=== PATIENT | male | born 1995 | race Caucasian/White ===

== ENCOUNTER → 2020-06-19 10:07 | Outpatient (CLI) | payer OTHER, SELFPAY ==
[2020-06-19 12:53] LABS: COVID19 -Nasal RAPID POSITIVE (Negative)
== END ==
PROVIDERS: Visit Provider Physician Assistant
DX: U07.1 COVID-19 (principal)
CPT/HCPCS: 87070; 87635

== ENCOUNTER 2022-08-03 10:32 | Emergency (ER) | payer OTHER, SELFPAY ==
[2022-08-03 10:54] VITALS: BP 116/84; PULSE 81; RESP 18; TEMP 36.9; O2SAT 96; BMI 27.9
[2022-08-03 11:37] LABS: Add Manual Diff / Slide Review NO; Basophils Absolute Auto 0 /uL (0-100); Basophils Percent Auto 0.2 % (0-2); Eosinophils Absolute Auto 0 /uL (0-450); Eosinophils Percent Auto 0.2 % (2-4); Hemoglobin 14.7 g/dL (13.5-17.5); Lymphocytes Absolute Auto 700 /uL (1100-4500); Lymphocytes Percent Auto 12.1 % (25-40); Mean Corpuscular Hemoglobin 31.2 PG (26-34); Mean Corpuscular Volume 89.1 fL (80-100); Monocytes Absolute Auto 400 /uL (0-900); Monocytes Percent Auto 5.9 % (3-14); Neutrophils Absolute Auto 4900 /uL (1500-7000); Neutrophils Percent Auto 81.6 % (50-75); Platelet Count 280 X10^3/uL (150-400); Red Blood Cell Count 4.71 X10^6/uL (4.5-5.9); Red Cell Distribution Width 12.2 % (11.6-14.8)
[2022-08-03 11:48] LABS: Appearance Urine UA CLEAR; Bilirubin Urine UA NEGATIVE (NEGATIVE); Color Urine UA YELLOW; Glucose Urine UA NEGATIVE (Negative); Ketones Urine UA TRACE (NEGATIVE); Leukocyte Esterase Urine UA NEGATIVE (NEGATIVE); Nitrite Urine UA NEGATIVE (Negative); Occult Blood Urine UA NEGATIVE (Negative); Protein Urine UA NEGATIVE (Negative); Urobilinogen Urine UA 0.2 E.U./dL (0.2); pH Urine UA 7.5 (4.5-8.0)
[2022-08-03 11:48] LABS: Acetaminophen < 10 ug/mL (10-30); Alanine Aminotransferase 34 IU/L (<50); Albumin 4.6 g/dL (3.5-5.0); Albumin Globulin Ratio 1.4 (1.0-2.8); Alkaline Phosphatase 98 U/L (38-126); Aspartate Aminotransferase 24 IU/L (17-59); BUN Creatinine Ratio 14.1 (6-22); Bilirubin Total 2.5 mg/dL (0.2-1.3); Blood Urea Nitrogen 10 mg/dL (9-20); Calcium 9.3 mg/dL (8.4-10.2); Carbon Dioxide 28 mmol/L (22-32); Chloride 100 mmol/L (98-107); Estimated Glomerular Filt Rate > 60 mL/min (>60); Ethanol (ETOH) < 10 mg/dL; Globulin 3.4 g/dL (1.7-4.1); Glucose 104 mg/dL (70-100); HEMOLYSIS < 15 (0-50); Salicylate < 1.0 mg/dL (<20); Sodium 137 mmol/L (137-145)
[2022-08-03 11:58] LABS: UR Morphine/Opiate cutoff 300 Negative (Negative); Ur Creatinine Normal (Normal); Ur Specific Gravity Normal (Normal); Urine Amphetamines Negative (Negative); Urine Barbiturates Negative (Negative); Urine Benzodiazepines Negative (Negative); Urine Cocaine Negative (Negative); Urine MDMA Negative (Negative); Urine Methadone Negative (Negative); Urine Methamphetamines Negative (Negative); Urine Oxycodone Negative (Negative); Urine Phencyclidine Negative (Negative); Urine Tetrahydrocannabinol Negative (Negative); Urine Tricyclic Antidepressant Negative (Negative); Urine pH Normal (Normal)
[2022-08-03 12:00] LABS: Bacteria Urine None Seen; Culture Indicated Urine Cult Not Indicated; RBC Urine None Seen (0-5/HPF); Squamous Epithelial Cell Urine None Seen (0-5/HPF); WBC Urine None Seen (0-5/HPF)
[2022-08-03 12:05] LABS: Free T4, Direct Thyroxine 1.07 ng/dL (0.78-2.19)
[2022-08-03 12:19] LABS: Thyroid Stimulating Hormone 1.53 uIU/mL (0.47-4.68)
--- NOTE | 2022-08-03 14:42 | CM.SWNOTE ---
Addendum entered by Caryl Rick 08/03/22 15:31: VENDING MACHINE REFILLER provided patient for DVR through [facility] when he is ready to seek occupational and educational services. VENDING MACHINE REFILLER also provides patient with list of crisis contacts. VENDING MACHINE REFILLER attempts to call treatment development disability specialist, information provided by therapist but VENDING MACHINE REFILLER is unable to leave VM. VENDING MACHINE REFILLER encourages patient to contact them and encourages patient to give programs a try as they may be different from his previous experience. ED provider endorses plan to prescribe Hydroxyzine for patient and patient is medically clear for d/c. VENDING MACHINE REFILLER reviews this with patient and patient endorses understanding and states he feels comfortable driving home and discharging to home. VENDING MACHINE REFILLER recommends that patient call his sister or mother when he is feeling anxious. VENDING MACHINE REFILLER discusses going outside as needed as well. Patient to f/u with outpatient providers, patient to d/c to home upon medical clearance. Caryl Rick, [facility] Original Note: VENDING MACHINE REFILLER Assessment Note VENDING MACHINE REFILLER - Official Greeter Assessment VENDING MACHINE REFILLER/Official Greeter Assessment Time Spent with Patient Start date 08/03/22 Visit Start Time 12:20 End date 08/03/22 Visit End Time 12:35 Total time Care Management spent on 20 minutes patient visit-in minutes Mental Health Screening Include Onset, Duration, Intensity Presenting Problem Patient presents to ED due to concern for ongoing panic attacks over the last four days. Patient endorses statements I wish I could go to sleep and not wake up, I wish I could have a procedure to fix me. Patient denies SI plan. Patient endorses concern for feeling joyless, difficulty enjoying things or applying himself. Precipitating Event(s) Patient endorses hx of a similar panic attack in October where he went to a treatment facility for a month . Patient endorses he moved from [place] to live with Parents in December, patient endorses difficulty managing going to college or working due to his Depression and anxiety. Patient Strengths Patient has good family supports but they are out of town right now, patient has a Psychiatrist and therapist and patient is seeking more help and guidance. Current Behavioral Health Provider(s) Patient sees Psychiatrist Dr. Ghada Shannon, Provider, Ph. # Peggy Noe with [facility] (Ph. # ) Patient sees therapist Dr. Laina Garcia, Ph.D, [facility] (Ph[facility] # ) Patient endorses he missed a recent psychiatry appt and he had a therapy appt the other day and was supposed to have appt today but patient chose to go to ED. Patient gives verbal consent for VENDING MACHINE REFILLER to contact patient's providers. VENDING MACHINE REFILLER leaves VM with both providers. Patient's therapist returns call and endorses that patient has been emotionally unstable lately most likely because his biggest supports his sister and mother are out of town. Therapist endorses hx of treatment program that did not set up patient with a transitional program upon discharge to home. Therapist reports patient would benefit from IOP or PHP as well as other treatment programs that specialize in ASD. Therapist endorses that it is often difficulty for patient to take the next step and make phone calls but sometimes he is quite able to follow through. Psych. Hx Mental Health and Chemical Patient endorses dx of ADD, Dependency Anxiety, Depression, Autism Spectrum Disorder and patient states he could have dx of Social Pragmatic Disorder. Patient denies substance or ETOH use. Patient endorses rx of citalopram 20mg prescribed by psychiatrist but denies any other current rx. Family Hx of Behavioral Abuse None reported Psychiatric Hospitalizations (date(s)/ Patient endorses month long location) stay last year at [facility] in [place] to address his mental health concerns. Patient endorses he went there seeking tools and did not find it to be helpful. Psychosocial information & Support Patient is 27 y/o male who is Systems currently residing with his parents in [place]. Patient endorses he moved there in December after living alone in the [place] area. School/Work Patient endorses he was going to [employer] last year but he is currently not going to school or working. Patient endorses that discussing goals makes him more anxious. Legal Concerns Legal Matters - Outstanding Issues None reported Mental Status Orientation (Person/Place/Time) A/Ox4 Stated Mood feeling shitty Affect (Congruent with Mood?) depressed, Flat (congruent with ASD), full range, congruent with mood. Thought Content - Specify/Describe None reported Obsessions, Delusions, Hallucinations Thought Processes (Ykusnjg-Omkqxhbx-Urhn coherent Ffugedql-Kutewsih-Ypzlwyuebr- Domqeespngektu-Ulpqlqg-Euuivbmzfmkf- Thought Blocking) Speech (Rlwslh-Tcuz-Uydmuly-Rapid-Soft- normal Loud-Pressured) Motor (Pgroiq-Uqkgrruli-Xmre-Other) normal Insight (Tfpv-Ipeo-Idez/Limited) good/fair Judgement (Byzn-Cbse-Rxki/Limited) good/fair Impulse Control (Adequate-Impaired) adequate Memory (Ydffsekmg-Hwsemj-Ycylkh, intact, not formally assessed Impaired-Intact) Concentration (Intact-Impaired) intact Attention (Intact-Impaired) intact Behavior (Appropriate-Inappropriate) appropriate Additional Comment Patient presents as calm, communicative and cooperative. Risk Assessment Suicidal Ideation (Plan) Yes Homicidal Ideation (Plan) No Comment Patient endorses SI and states I want to go to sleep and not wake up. Patient denies hx of SI in high school, patient denies plans. Patient endorses he has SI because of frustration, panic and fear of failure. Intervention Intervention VENDING MACHINE REFILLER enters room to meet with patient. Patient endorses concern for anxiety and panic attacks. Patient endorses thoughts of wanting to go to sleep and not wake up, patient denies SI plans. Patient endorses concern for feeling stuck, concerned about his ability to apply himself. Patient endorses he is seeking guidance and help Patient endorses he is seeking structure about what to do and how to move forward. Patient endorses that he has a psychiatrist and therapist and that he went to a treatment center for a month but did not find it helpful. VENDING MACHINE REFILLER discusses BH inpatient hospitalization, patient endorses that he is not interested and does not believe it will be helpful. VENDING MACHINE REFILLER awaiting to hear back from psychiatrist to attempt to coordinate care and next appt for patient. VENDING MACHINE REFILLER to discuss other outpatient options for patient to access MH and ASD resources. It is the opinion of this VENDING MACHINE REFILLER that patient is safe to d/c to home upon medical clearance. VENDING MACHINE REFILLER reviews the above with ED provider JOSE Wyman. ED provider has yet to evaluate patient at this time. Plan RA Plan VENDING MACHINE REFILLER to seek further outpatient resources for patient, patient to d/c to home upon medical clearance, patient to f/u with therapist and psychiatrist. JENNIFER Grant
--- NOTE | 2022-08-03 15:29 | ED_ITS ---
HPI - Psych <Kayla Live PA-C - Last Filed: 08/03/22 16:16> General Chief Complaint: Psychiatric Symptoms Stated Complaint: Panic attack, worsening Time Seen by Provider: 08/03/22 11:05 Source: patient Mode of arrival: Ambulatory History of Present Illness HPI Narrative: This is a 27-year-old male history of autism, anxiety, depression who presents with concern for panic attacks. Patient states that he has a history of anxiety and depression and had a problem with panic attacks last summer and again about 4 days ago he said he had a pretty bad panic attack and they have been happening about once a day since then. He states he has been taking his regular medications and does not feel that there have been any specific life stressors recently that have brought it on. He does try to do breathing exercises when they happened but he has difficulty controlling his symptoms. When he is having them he says he has symptoms of tightness in his stomach, nausea and feeling cold. He states he has a psychiatrist that he sees who prescribes his citalopram and he ?needs to make an appointment to see her?. He states he usually sees her about every 1 or 2 months but has not been in in the last month or 2. He does state he has resources and people he feels he can call, he lives with his parents and says that they are supportive. He states that he feels like his panic attacks last summer with a result of having problems in college he has been in and out of college as an adult and feels frustrated by his symptoms of anxiety and depression which she feels have gradually worsened in his 20s. He denies any recent illness including pain, fevers, chills or any other symptoms. Related Data Home Medications Medication Instructions Recorded Confirmed citalopram 10 mg tablet (Celexa) 10 mg PO QDAY ##0 03/21/17 citalopram 20 mg tablet (Celexa) 20 mg PO QDAY ##0 03/21/17 Previous Rx's Medication Instructions Recorded amoxicillin 875 mg-potassium 875 mg PO BID #20 tabs 03/21/17 clavulanate 125 mg tablet (Augmentin) hydroxyzine HCl 25 mg tablet 25 mg PO TID PRN anxiety/panic 08/03/22 attacks #30 tabs Allergies Allergy/AdvReac Type Severity Reaction Status Date / Time No Known Allergies Allergy Uncoded 06/26/17 12:30 Review of Systems <Kayla Live PA-C - Last Filed: 08/03/22 16:16> Review of Systems Narrative: See HPI Patient History <Kayla Live PA-C - Last Filed: 08/03/22 16:16> Social History Smoking Status: Never smoker Smoking Status: Never smoker alcohol intake frequency: holidays/special occasions only Substance Use Type: does not use Exam <Kayla Live PA-C - Last Filed: 08/03/22 16:16> Narrative Exam Narrative: GENERAL: 27 year old patient appears stated age. Well-developed patient, in mild distress. HEAD: Atraumatic. Normocephalic. EYES: Pupils equal round and reactive. Extraocular motions intact. No scleral icterus. No injection or drainage. ENT: Nose without bleeding, purulent drainage. Throat without erythema, tonsillar hypertrophy or exudate. Airway patent. NECK: Trachea midline. Non tender CARDIOVASCULAR: Regular rate and rhythm without murmurs, gallops, or rubs. RESPIRATORY: Clear to auscultation. Breath sounds equal bilaterally. No wheezes, rales, or rhonchi. GASTROINTESTINAL: Abdomen soft, non-tender, nondistended. EXTREMITIES: No edema or joint tenderness. BACK: Nontender without deformity or crepitance. No flank tenderness. NEURO: AOx3. SKIN: No rash or erythema of visible areas PSYCH: Slightly flat affect. No thoughts of harming self or others. Normal speech/thought processes. Initial Vital Signs Initial Vital Signs: Vital Signs Temperature 98.4 F 08/03/22 10:54 Pulse Rate 81 08/03/22 10:54 Respiratory Rate 18 08/03/22 10:54 Blood Pressure 116/84 08/03/22 10:54 Pulse Oximetry 96 08/03/22 10:54 Oxygen Delivery Method Room Air 08/03/22 10:54 <Tory Ayala DO - Last Filed: 08/03/22 19:48> Initial Vital Signs Initial Vital Signs: Vital Signs Temperature 98.4 F 08/03/22 10:54 Pulse Rate 81 08/03/22 10:54 Respiratory Rate 18 08/03/22 10:54 Blood Pressure 116/84 08/03/22 10:54 Pulse Oximetry 96 08/03/22 10:54 Oxygen Delivery Method Room Air 08/03/22 10:54 Course <Kayla Live PA-C - Last Filed: 08/03/22 16:16> Orders Ordered: ED Orders 08/03/22 11:10 Consult to [facility] Continuous Improvement Analyst Stat 08/03/22 11:20 Acetaminophen Stat Complete Blood Count AUTO DIFF Stat Comprehensive Metabolic Panel Stat Ethanol (ETOH) Stat Free T4, Direct Thyroxine Stat Salicylate Stat Thyroid Stimulating Hormone Stat 08/03/22 11:35 Urinalysis and Microscopic Stat Urine Drug Screen, Rapid Stat Consultations Consultation #1: HOME AID was consulted and did see this patient, she feels that he is safe for outpatient treatment and does not meet criteria for inpatient. She has provided him with resources. Vital Signs Vital signs: Vital Signs - 8 hr 08/03/22 16:13 Pulse Rate 86 Respiratory Rate 18 Blood Pressure 140/70 Pulse Oximetry 96 Oxygen Delivery Method Room Air <Tory Ayala DO - Last Filed: 08/03/22 19:48> Orders Ordered: ED Orders 08/03/22 11:10 Consult to [facility] Continuous Improvement Analyst Stat 08/03/22 11:20 Acetaminophen Stat Complete Blood Count AUTO DIFF Stat Comprehensive Metabolic Panel Stat Ethanol (ETOH) Stat Free T4, Direct Thyroxine Stat Salicylate Stat Thyroid Stimulating Hormone Stat 08/03/22 11:35 Urinalysis and Microscopic Stat Urine Drug Screen, Rapid Stat Vital Signs Vital signs: Vital Signs - 8 hr 08/03/22 16:13 Pulse Rate 86 Respiratory Rate 18 Blood Pressure 140/70 Pulse Oximetry 96 Oxygen Delivery Method Room Air MDM - Psych <Kayla Live PA-C - Last Filed: 08/03/22 16:16> Differential Diagnosis Differential diagnosis: Likely depression, acute anxiety and other (panic attacks) Medical Records Attestation: I reviewed the patient's medical records. Lab Data Attestation: I reviewed the patient's lab results. 08/03/22 11:20 08/03/22 11:20 Labs: Lab Results 08/03/22 08/03/22 08/03/22 Range/Units 11:20 11:20 11:20 WBC 6.0 (4.5-11.0) X10^3/uL RBC 4.71 (4.5-5.9) X10^6/uL Hgb 14.7 (13.5-17.5) g/dL Hct 42.0 (41-53) % MCV 89.1 (80-100) fL MCH 31.2 (26-34) PG MCHC 35.0 (30-36) % RDW 12.2 (11.6-14.8) % Plt Count 280 (150-400) X10^3/uL Neut % (Auto) 81.6 H (50-75) % Lymph % (Auto) 12.1 L (25-40) % [place] % (Auto) 5.9 (3-14) % Eos % (Auto) 0.2 L (2-4) % Baso % (Auto) 0.2 (0-2) % Neut # (Auto) 4900 (4508-4375) /uL Lymph # (Auto) 700 L (2167-9497) /uL [place] # (Auto) 400 (0-900) /uL Eos # (Auto) 0 (0-450) /uL Baso # (Auto) 0 (0-100) /uL Sodium 137 (137-145) mmol/L Potassium 4.0 (3.4-5.1) mmol/L Chloride 100 (98-107) mmol/L Carbon Dioxide 28 (22-32) mmol/L BUN 10 (9-20) mg/dL Creatinine 0.71 (0.66-1.25) mg/dL Estimated GFR > 60 (>60) mL/min BUN/Creatinine Ratio 14.1 (6-22) Glucose 104 H (70-100) mg/dL Calcium 9.3 (8.4-10.2) mg/dL Total Bilirubin 2.5 H (0.2-1.3) mg/dL AST 24 (17-59) IU/L ALT 34 (<50) IU/L Alkaline Phosphatase 98 (38-126) U/L Total Protein 8.0 (6.3-8.2) g/dL Albumin 4.6 (3.5-5.0) g/dL Globulin 3.4 (1.7-4.1) g/dL Albumin/Globulin Ratio 1.4 (1.0-2.8) TSH 1.53 (0.47-4.68) uIU/mL Free T4 1.07 (0.78-2.19) ng/dL Urine Color Urine Appearance Urine pH (4.5-8.0) Ur Specific [place] (1.000-1.035) Urine Protein (Negative) Urine Glucose (UA) (Negative) g/dL Urine Ketones (NEGATIVE) Urine Occult Blood (Negative) Urine Nitrate (Negative) Urine Bilirubin (NEGATIVE) Urine Urobilinogen (0.2) E.U./dL Ur Leukocyte Esterase (NEGATIVE) Urine RBC (0-5/HPF) Urine WBC (0-5/HPF) Ur Squamous Epith Cells (0-5/HPF) Urine Bacteria (None) Ur Culture Indicated? Salicylates < 1.0 (<20) mg/dL U Opiates 300ng/mL cut (Negative) Ur Oxycodone Screen (Negative) Urine Methadone Screen (Negative) Acetaminophen < 10 (10-30) ug/mL Ur Barbiturates Screen (Negative) U Tricyclic Antidepress (Negative) Ur Phencyclidine Scrn (Negative) Ur Amphetamines Screen (Negative) U Methamphetamines Scrn (Negative) Ur MDMA Scrn (Ecstasy) (Negative) U Benzodiazepines Scrn (Negative) Urine Cocaine Screen (Negative) U Marijuana (THC) Screen (Negative) Ethyl Alcohol < 10 ( - 10) mg/dL 08/03/22 08/03/22 Range/Units 11:35 11:35 WBC (4.5-11.0) X10^3/uL RBC (4.5-5.9) X10^6/uL Hgb (13.5-17.5) g/dL Hct (41-53) % MCV (80-100) fL MCH (26-34) PG MCHC (30-36) % RDW (11.6-14.8) % Plt Count (150-400) X10^3/uL Neut % (Auto) (50-75) % Lymph % (Auto) (25-40) % [place] % (Auto) (3-14) % Eos % (Auto) (2-4) % Baso % (Auto) (0-2) % Neut # (Auto) (3142-5197) /uL Lymph # (Auto) (3460-2886) /uL [place] # (Auto) (0-900) /uL Eos # (Auto) (0-450) /uL Baso # (Auto) (0-100) /uL Sodium (137-145) mmol/L Potassium (3.4-5.1) mmol/L Chloride (98-107) mmol/L Carbon Dioxide (22-32) mmol/L BUN (9-20) mg/dL Creatinine (0.66-1.25) mg/dL Estimated GFR (>60) mL/min BUN/Creatinine Ratio (6-22) Glucose (70-100) mg/dL Calcium (8.4-10.2) mg/dL Total Bilirubin (0.2-1.3) mg/dL AST (17-59) IU/L ALT (<50) IU/L Alkaline Phosphatase (38-126) U/L Total Protein (6.3-8.2) g/dL Albumin (3.5-5.0) g/dL Globulin (1.7-4.1) g/dL Albumin/Globulin Ratio (1.0-2.8) TSH (0.47-4.68) uIU/mL Free T4 (0.78-2.19) ng/dL Urine Color Yellow Urine Appearance Clear Urine pH 7.5 (4.5-8.0) Ur Specific [place] 1.010 (1.000-1.035) Urine Protein Negative (Negative) Urine Glucose (UA) Negative (Negative) g/dL Urine Ketones Trace H (NEGATIVE) Urine Occult Blood Negative (Negative) Urine Nitrate Negative (Negative) Urine Bilirubin Negative (NEGATIVE) Urine Urobilinogen 0.2 (0.2) E.U./dL Ur Leukocyte Esterase Negative (NEGATIVE) Urine RBC None seen (0-5/HPF) Urine WBC None seen (0-5/HPF) Ur Squamous Epith Cells None seen (0-5/HPF) Urine Bacteria None seen (None) Ur Culture Indicated? Cult not indicated Salicylates (<20) mg/dL U Opiates 300ng/mL cut Negative (Negative) Ur Oxycodone Screen Negative (Negative) Urine Methadone Screen Negative (Negative) Acetaminophen (10-30) ug/mL Ur Barbiturates Screen Negative (Negative) U Tricyclic Antidepress Negative (Negative) Ur Phencyclidine Scrn Negative (Negative) Ur Amphetamines Screen Negative (Negative) U Methamphetamines Scrn Negative (Negative) Ur MDMA Scrn (Ecstasy) Negative (Negative) U Benzodiazepines Scrn Negative (Negative) Urine Cocaine Screen Negative (Negative) U Marijuana (THC) Screen Negative (Negative) Ethyl Alcohol ( - 10) mg/dL Treatment and disposition Shared decision making:: Shared decision-making was used in determine the usha glass's plan of care in the emergency department and plan for outpatient care MDM Narrative Medical decision making narrative: This is a well-appearing 27-year-old male with a history of autism, anxiety and depression who presents with concern for panic attacks for the last 3-4 days. Patient was interested in help with his symptoms and met with social work today, he has no recent illness or medical complaint, he had an unremarkable exam. Discussed options with him he has a new prescription for hydroxyzine, and resources provided by social work today. He has a psychiatrist already and will be following with them as well. Patient's labs were unremarkable today. Return precautions provided, follow-up plan discussed, all questions answered. <Tory Ayala, DO - Last Filed: 08/03/22 19:48> Lab Data Labs: Lab Results 08/03/22 08/03/22 08/03/22 Range/Units 11:20 11:20 11:20 WBC 6.0 (4.5-11.0) X10^3/uL RBC 4.71 (4.5-5.9) X10^6/uL Hgb 14.7 (13.5-17.5) g/dL Hct 42.0 (41-53) % MCV 89.1 (80-100) fL MCH 31.2 (26-34) PG MCHC 35.0 (30-36) % RDW 12.2 (11.6-14.8) % Plt Count 280 (150-400) X10^3/uL Neut % (Auto) 81.6 H (50-75) % Lymph % (Auto) 12.1 L (25-40) % [place] % (Auto) 5.9 (3-14) % Eos % (Auto) 0.2 L (2-4) % Baso % (Auto) 0.2 (0-2) % Neut # (Auto) 4900 (6933-8144) /uL Lymph # (Auto) 700 L (2898-0348) /uL [place] # (Auto) 400 (0-900) /uL Eos # (Auto) 0 (0-450) /uL Baso # (Auto) 0 (0-100) /uL Sodium 137 (137-145) mmol/L Potassium 4.0 (3.4-5.1) mmol/L Chloride 100 (98-107) mmol/L Carbon Dioxide 28 (22-32) mmol/L BUN 10 (9-20) mg/dL Creatinine 0.71 (0.66-1.25) mg/dL Estimated GFR > 60 (>60) mL/min BUN/Creatinine Ratio 14.1 (6-22) Glucose 104 H (70-100) mg/dL Calcium 9.3 (8.4-10.2) mg/dL Total Bilirubin 2.5 H (0.2-1.3) mg/dL AST 24 (17-59) IU/L ALT 34 (<50) IU/L Alkaline Phosphatase 98 (38-126) U/L Total Protein 8.0 (6.3-8.2) g/dL Albumin 4.6 (3.5-5.0) g/dL Globulin 3.4 (1.7-4.1) g/dL Albumin/Globulin Ratio 1.4 (1.0-2.8) TSH 1.53 (0.47-4.68) uIU/mL Free T4 1.07 (0.78-2.19) ng/dL Urine Color Urine Appearance Urine pH (4.5-8.0) Ur Specific [place] (1.000-1.035) Urine Protein (Negative) Urine Glucose (UA) (Negative) g/dL Urine Ketones (NEGATIVE) Urine Occult Blood (Negative) Urine Nitrate (Negative) Urine Bilirubin (NEGATIVE) Urine Urobilinogen (0.2) E.U./dL Ur Leukocyte Esterase (NEGATIVE) Urine RBC (0-5/HPF) Urine WBC (0-5/HPF) Ur Squamous Epith Cells (0-5/HPF) Urine Bacteria (None) Ur Culture Indicated? Salicylates < 1.0 (<20) mg/dL U Opiates 300ng/mL cut (Negative) Ur Oxycodone Screen (Negative) Urine Methadone Screen (Negative) Acetaminophen < 10 (10-30) ug/mL Ur Barbiturates Screen (Negative) U Tricyclic Antidepress (Negative) Ur Phencyclidine Scrn (Negative) Ur Amphetamines Screen (Negative) U Methamphetamines Scrn (Negative) Ur MDMA Scrn (Ecstasy) (Negative) U Benzodiazepines Scrn (Negative) Urine Cocaine Screen (Negative) U Marijuana (THC) Screen (Negative) Ethyl Alcohol < 10 ( - 10) mg/dL 08/03/22 08/03/22 Range/Units 11:35 11:35 WBC (4.5-11.0) X10^3/uL RBC (4.5-5.9) X10^6/uL Hgb (13.5-17.5) g/dL Hct (41-53) % MCV (80-100) fL MCH (26-34) PG MCHC (30-36) % RDW (11.6-14.8) % Plt Count (150-400) X10^3/uL Neut % (Auto) (50-75) % Lymph % (Auto) (25-40) % [place] % (Auto) (3-14) % Eos % (Auto) (2-4) % Baso % (Auto) (0-2) % Neut # (Auto) (9246-3269) /uL Lymph # (Auto) (5387-7115) /uL [place] # (Auto) (0-900) /uL Eos # (Auto) (0-450) /uL Baso # (Auto) (0-100) /uL Sodium (137-145) mmol/L Potassium (3.4-5.1) mmol/L Chloride (98-107) mmol/L Carbon Dioxide (22-32) mmol/L BUN (9-20) mg/dL Creatinine (0.66-1.25) mg/dL Estimated GFR (>60) mL/min BUN/Creatinine Ratio (6-22) Glucose (70-100) mg/dL Calcium (8.4-10.2) mg/dL Total Bilirubin (0.2-1.3) mg/dL AST (17-59) IU/L ALT (<50) IU/L Alkaline Phosphatase (38-126) U/L Total Protein (6.3-8.2) g/dL Albumin (3.5-5.0) g/dL Globulin (1.7-4.1) g/dL Albumin/Globulin Ratio (1.0-2.8) TSH (0.47-4.68) uIU/mL Free T4 (0.78-2.19) ng/dL Urine Color Yellow Urine Appearance Clear Urine pH 7.5 (4.5-8.0) Ur Specific [place] 1.010 (1.000-1.035) Urine Protein Negative (Negative) Urine Glucose (UA) Negative (Negative) g/dL Urine Ketones Trace H (NEGATIVE) Urine Occult Blood Negative (Negative) Urine Nitrate Negative (Negative) Urine Bilirubin Negative (NEGATIVE) Urine Urobilinogen 0.2 (0.2) E.U./dL Ur Leukocyte Esterase Negative (NEGATIVE) Urine RBC None seen (0-5/HPF) Urine WBC None seen (0-5/HPF) Ur Squamous Epith Cells None seen (0-5/HPF) Urine Bacteria None seen (None) Ur Culture Indicated? Cult not indicated Salicylates (<20) mg/dL U Opiates 300ng/mL cut Negative (Negative) Ur Oxycodone Screen Negative (Negative) Urine Methadone Screen Negative (Negative) Acetaminophen (10-30) ug/mL Ur Barbiturates Screen Negative (Negative) U Tricyclic Antidepress Negative (Negative) Ur Phencyclidine Scrn Negative (Negative) Ur Amphetamines Screen Negative (Negative) U Methamphetamines Scrn Negative (Negative) Ur MDMA Scrn (Ecstasy) Negative (Negative) U Benzodiazepines Scrn Negative (Negative) Urine Cocaine Screen Negative (Negative) U Marijuana (THC) Screen Negative (Negative) Ethyl Alcohol ( - 10) mg/dL Discharge Plan Departure Patient Disposition: Home Clinical Impression: Panic attacks Instructions: DI for Panic Disorder Activity Restrictions/Additional Instructions: *You have been diagnosed with panic attacks *What to do: *Please continue to take your regular medications as directed. [ 1] New medication prescriptions sent to your pharmacy: [ Hydroxyzine] [ ] New medication written as a paper prescription [ ] No new medications given *Please follow up with your primary care provider in 2-3 days, call for an appointment. Let them know you were seen in the Emergency Department and that we ask that you be seen in follow up. We will electronically transmit a record of today's note if your PCP is in our system. I recommend you follow-up with your psychiatrist, encourage you to get in with counselor, I did prescribe a new medication for you that can be used when you feel like her anxiety is becoming more intense or your concern that you are getting a panic attack, it should not be used more than 3 times a day at max. Our dialysis social worker also met with you today and provided you with some outpatient resources. *If you do not have a primary care provider please contact the [facility] Resource line at [phone]. They will ask some questions about your medical history and help get you set up with a doctor in the community. *Return to Emergency Department if you should have any new, worsening or concerning symptoms, such as [fever greater than 101 F, shaking chills, worsening pain, persistent vomiting or other bothersome symptoms] Prescriptions: New hydroxyzine HCl 25 mg tablet 25 mg PO TID PRN (Reason: anxiety/panic attacks) Qty: 30 0RF No Action citalopram [Celexa] 10 MG tablet 10 mg PO QDAY Qty: 0 citalopram [Celexa] 20 MG tablet 20 mg PO QDAY Qty: 0 amoxicillin-pot clavulanate [Augmentin] 875 MG/125 MG tablet 875 mg PO BID Qty: 20 0RF Referrals: Miscellaneous,Doctor, MD [Primary Care Provider] - Stand Alone Forms: Patient Portal/API <Tory Ayala DO - Last Filed: 08/03/22 19:48> Cosign ED Attending Shruti Attestation: I was immediately available in the department for consultation. Documentation has been reviewed.
[2022-08-03 16:13] VITALS: BP 140/70; PULSE 86; RESP 18; O2SAT 96
== END 2022-08-03 16:13 | disposition home or self-care (01) ==
PROVIDERS: Emergency Medicine; Emergency Provider Student in an Organized Health Care Education/Training Program
DX: F41.0 Panic disorder [episodic paroxysmal anxiety] (principal)
CPT/HCPCS: 36415; 80053; 80305; 80320; 80329; 81001; 84439; 84443; 85025; 99283; 99284; G0480

== ENCOUNTER → 2023-11-14 14:23 | Outpatient (CLI) | payer OTHER, SELFPAY ==
--- NOTE | 2023-11-14 | DI.RAD.S_ITS ---
PROCEDURE: XR LUMBAR SPINE 2-3V INDICATIONS: lumbar back pain TECHNIQUE: 3 views of the lumbar spine were acquired. COMPARISON: None. FINDINGS: Bones: 5 [id number] vertebrae are present. There is normal bony alignment. No vertebral body compression fractures. No suspicious bony lesions. Soft tissues: Overlying bowel gas pattern is normal. No suspicious soft tissue calcifications. IMPRESSION: No acute compression fracture or spondylolisthesis in lumbar spine. No significant degenerative disc disease. Dictated by: Srinivasan Boucehr M.D. on 11/15/2023 at 8:34 Approved by: Srinivasan Boucher M.D. on 11/15/2023 at 8:34
== END ==
PROVIDERS: PCP Family Medicine; Referring Provider Family Medicine; Visit Provider Family Medicine
DX: M54.50 Low back pain, unspecified (principal)
CPT/HCPCS: 72100